=== PATIENT | male | born 1985 | race Caucasian/White ===

== ENCOUNTER 2017-03-15 16:51 | Emergency (ER) | payer OTHER ==
[~2017-03-15] VITALS: Ht 177.8 cm; Wt 93.5 kg
[2017-03-15 16:59] VITALS: Ht 177.8 cm; Wt 93.5 kg
[2017-03-15] MEDS ORDERED: HYDROCODONE/APAP (5/325) TAB PO ONE (18:30)
[2017-03-15] MEDS ORDERED: HYDR-906 PO (20:01)
[2017-03-15] MEDS ORDERED: IBUP-1542 PO (20:01)
[2017-03-15] MEDS ORDERED: ORPH100T PO (20:01)
--- NOTE | 2017-03-15 20:22 | RADRPT ---
PROCEDURE: XR Lumbar Spine. CLINICAL INDICATION: Lumbar spine pain. TECHNIQUE: AP, lateral, and cone-down lateral view of the lumbar spine were obtained. COMPARISON: No prior studies are available for comparison. FINDINGS: The alignment of the lumbar spine is within normal limits. The vertebral body heights and marrow de nsity are normal in appearance. There is preservation of the intervertebral disc spaces. There is no significant facet spondylosis. The neural foramina appear patent. The paraspinal soft tissues u nremarkable. The posterior elements are unremarkable. IMPRESSION: 1. Normal radiographs of the lumbar spine. 2. No evidence of fracture or significant degenerative disc disease. RPTAT: HGAS .Manny Thapa MD, MD Date Time Electronically viewed and signed by .Manny Thapa MD, on 03/15/2017 20:22 .S/
--- NOTE | 2017-03-15 20:23 | RADRPT ---
PROCEDURE: XR Knee. CLINICAL INDICATION: Bilateral knee pain status post fall. TECHNIQUE: AP, lateral and tunnel views of the bilateral knees were obtained. The images reviewed on a PACS workstation. COMPARISON: None available FINDINGS: Right knee: The distal femur and proximal tibia/fibula are normal in appearance. There is no fractu re. The medial and lateral compartment joint spaces are preserved. There is no abnormal calcificat ion. There is no joint effusion. Hoffa's fat pad is normal in appearance. There is normal appeara nce of the patellofemoral joint. The soft tissues are unremarkable. Left knee: The distal femur and proximal tibia/fibula are normal in appearance. There is no fractur e. The medial and lateral compartment joint spaces are preserved. There is no abnormal calcificati on. There is no joint effusion. Hoffa's fat pad is normal in appearance. There is normal appearan ce of the patellofemoral joint. The soft tissues are unremarkable. IMPRESSION: 1. Normal radiographs of the bilateral knees. No evidence of fracture. RPTAT: HGAS .Manny Thapa MD, MD Date Time Electronically viewed and signed by .Manny Thapa MD, on 03/15/2017 20:23 .S/
--- NOTE | 2017-03-15 20:25 | RADRPT ---
PROCEDURE: XR Tibia and Fibula. CLINICAL INDICATION: Left leg pain. TECHNIQUE: AP, lateral and oblique views of the left tibia and fibula were obtained. COMPARISON: No prior studies are available for comparison. FINDINGS: There is normal mineralization and alignment. No fracture or osseous lesion is identified. The joint s are unremarkable. There are normal soft tissues without evidence of soft tissue swelling. IMPRESSION: 1. Normal radiographs of the left tibia and fibula. No evidence of fracture. RPTAT: HGAS .Manny Thapa MD, MD Date Time Electronically viewed and signed by .Manny Thapa MD, MD on 03/15/2017 20:25 .S/
--- NOTE | 2017-03-15 20:26 | RADRPT ---
PROCEDURE: XR Tibia and Fibula. CLINICAL INDICATION: Right leg pain. TECHNIQUE: AP, lateral and oblique views of the right tibia and fibula were obtained. COMPARISON: No prior studies are available for comparison. FINDINGS: There is normal mineralization and alignment. No fracture or osseous lesion is identified. The joint s are unremarkable. There are normal soft tissues without evidence of soft tissue swelling. IMPRESSION: 1. Normal radiographs of the right tibia and fibula. No evidence of fracture. RPTAT: HGAS .Manny Thapa MD, MD Date Time Electronically viewed and signed by .Manny Thapa MD, MD on 03/15/2017 20:25 .S/
--- NOTE | 2017-03-15 20:26 | RADRPT ---
PROCEDURE: XR shoulder. CLINICAL INDICATION: Right shoulder pain. TECHNIQUE: AP internal and external rotation views of the right shoulder were performed. COMPARISON: None available FINDINGS: The clavicle, scapula and proximal humerus are normal in appearance. The acromioclavicular joint is normal in appearance. There is no significant lateral downsloping of the acromion. The glenohumer al joint space is maintained. There is no evidence of fracture or dislocation. The right hemithora x is normal in appearance. The soft tissues are unremarkable. IMPRESSION: 1. Normal radiographs of the right shoulder. No evidence of fracture or dislocation. RPTAT: HGAS .Manny Thapa MD, Date Time Electronically viewed and signed by .Manny Thapa MD, on 03/15/2017 20:26 .S/
[2017-03-15 20:45] VITALS: BP 112/68; PULSE 71; RESP 20
--- NOTE | 2017-03-16 10:58 | ERD ---
ER Documentation Chief Complaint Date/Time DATE: 03/16/17 TIME: 10:45 Chief Complaint GLF FROM LADDER YESTERDAY HPI This is a 31-year-old female that presents to the ER with his for pain after falling from a 6 foot ladder yesterday. Patient states that he is now experiencing lower back pain, bilateral knee pain, bilateral lower leg pain, right shoulder pain, right shoulder blade pain. Patient denies hitting his head he denies any loss of consciousness, nausea, vomiting. Patient denies any neck pain or neck stiffness.Patient denies any headache, vision loss, vision changes. He denies any weaknesses of his lower or upper extremities. Patient denies any numbness and tingling of his lower or upper extremities. Patient denies any urinary bowel incontinence. He denies any saddle like anesthesia. He denies any chest pain or shortness of breath. ROS 12 point review of systems was done all negative except per HPI. Medications Home Meds Active Scripts Orphenadrine Citrate (Norflex) 100 Mg Tablet.sa, 100 MG PO BID for 7 Days, TAB.SA Prov:DWIGHT ASHLEY C 03/15/17 Ibuprofen* (Motrin*) 600 Mg Tab, 600 MG PO Q6, #30 TAB Prov:GABI,DWIGHT C 03/15/17 Hydrocodone/Acetaminophen ([place]ia 5-325 Tablet) 1 Each Tablet, 1 TAB PO Q6H Y for PAIN, #20 TAB Prov:GABI,DWIGHT C 03/15/17 Allergies Allergies: Coded Allergies: No Known Allergy (Unverified , 03/15/17) PMhx/Soc Medical and Surgical Hx: pt denies Medical Hx, pt denies Surgical Hx Hx Alcohol Use: Yes Hx Substance Use: No Hx Tobacco Use: Yes Smoking Status: Light tobacco smoker Physical Exam Vitals Vital Signs Date Time Temp Pulse Resp B/P Pulse Ox O2 Delivery O2 Flow Rate FiO2 03/15/17 20:45 71 20 112/68 98 Room Air 03/15/17 16:59 98.4 104 18 130/75 97 Physical Exam GENERAL: The patient is well developed and appropriate for usual state of health , in no apparent distress. HEENT: Atraumatic. Conjunctivae are pink. Pupils equal, round, and reactive to light. Extraocular muscles are grossly intact. Bilateral tympanic membranes are clear with no evidence of erythema, effusion or dulling of the light reflex. The oropharynx is clear with no erythema or exudates. No raccoon eyes, no kahn sign. No CSF fluid from nasal nares are ears NECK: C-spine is soft and supple. There is no cervical lymphadenopathy. No surface trauma. Full range of motion without limitation or pain, flexion, extension, lateral bending, rotation and axial load. CHEST: Clear to auscultation bilaterally. There are no rales, wheezes or rhonchi. HEART: Regular rate and rhythm. No murmurs, clicks, rubs or gallops. ABDOMEN: Soft, nontender and nondistended, no areas of ecchymosis BACK: No midline or flank tenderness. no areas of ecchymosis LUMBAR SPINE: Patient is able to ambulate to treatment area without assistance. He is seated on the stretcher in no obvious distress. There is no surface trauma. No abrasions or scars. Patient is tender to palpation along L4 and L5. No SI notch tenderness no saddle anesthesia. Normal flexion, extension, lateral bending and rotation without limitation or complaint of pain. Heel and toe walk with good strength. Dorsi and plantar flexion with adequate strength. Negative straight leg test. Equal reflexes. +2 dorsalis pedal pulses and posterior tibial pulse. EXTREMITIES: The right shoulder is without obvious asymmetry or deformity when compared to the left shoulder. There is no surface trauma, ecchymosis, crepitus. No bony deformity or prominence of the humeral head. No erythema, warmth or swelling. Not tender to palpation over the clavicle, AC joint, acromion, humeral head. Patient is tender to palpation along the right scapula. There is no tenderness to palpation of the bicipital groove or soft tissues. Patient has painful extension of the right shoulder. However has normal range of motion with no pain or limitation with active or passive abduction, abduction, internal and external rotation, flexion. Negative drop arm test. Normal sensation over the deltoid. Distal motor neurovascular status is intact. Left shoulder is asymptomatic with normal range of motion and not tender to palpation. Normal range of motion of bilateral elbows and wrist with no pain and not tender to palpation. Left hip: Patient has normal range of motion of the left hip and is not tender to palpation. Areas of ecchymosis or deformities. Not tender to palpation over the femur Knees: Patient is tender to palpation to bilateral patellas, he however has normal and nonpainful range of motion to the knees. Negative anterior drawer negative posterior drawer negative Francisco Javier test bilaterally. Patient is tender to palpation to bilateral calves however denies any ankle pain. He is not tender to palpation to the lateral medial malleolus. Negative tarsal twist test. +2 pulses. Normal capillary refill. NEURO: Alert and oriented. Cranial nerves II through XII are intact. Motor strength in all 4 extremities with 5/5 strength. Sensation grossly intact. Normal speech and gait. SKIN: There is no apparent rash or petechia. The skin is warm and dry. Results 24 hrs Current Medications Medications (Trade) Dose Ordered Sig/Louis Route PRN Reason Start Time Stop Time Status Last Admin Dose Admin Acetaminophen/ Hydrocodone Bitart ([place]ia (5/325)) 2 tab ONCE ONCE PO 03/15/17 18:30 03/15/17 18:31 DC 03/15/17 18:[address] [place] [address] Radiology Main Line: [phone] DIAGNOSTIC IMAGING REPORT Patient: YAMINI MELGAR : 1985 Age: 31 Sex: M MR #: [id number] DOS: 03/15/17 0000 Ordering MD: DWIGHT ASHLEY PA-C Location: [facility] Room/Bed: PROCEDURE: XR Knee. CLINICAL INDICATION: Bilateral knee pain status post fall. TECHNIQUE: AP, lateral and tunnel views of the bilateral knees were obtained. The images reviewed on a PACS workstation. COMPARISON: None available FINDINGS: Right knee: The distal femur and proximal tibia/fibula are normal in appearance. There is no fracture. The medial and lateral compartment joint spaces are preserved. There is no abnormal calcification. There is no joint effusion. Hoffa's fat pad is normal in appearance. There is normal appearance of the patellofemoral joint. The soft tissues are unremarkable. Left knee: The distal femur and proximal tibia/fibula are normal in appearance. There is no fracture. The medial and lateral compartment joint spaces are preserved. There is no abnormal calcification. There is no joint effusion. Hoffa's fat pad is normal in appearance. There is normal appearance of the patellofemoral joint. The soft tissues are unremarkable. IMPRESSION: 1. Normal radiographs of the bilateral knees. No evidence of fracture. RPTAT: HGAS .Manny Thapa MD, MD Date Time Electronically viewed and signed by .Manny Thapa MD, MD on 03/15/2017 20: 23 .S/ CC: DWIGHT ASHLEY [place] [id number] Radiology Main Line: [phone] DIAGNOSTIC IMAGING REPORT Patient: YAMINI MELGAR : 1985 Age: 31 Sex: M MR #: [id number] DOS: 03/15/17 0000 Ordering MD: DWIGHT ASHLEY PA-C Location: [facility] Room/Bed: PROCEDURE: XR Lumbar Spine. CLINICAL INDICATION: Lumbar spine pain. TECHNIQUE: AP, lateral, and cone-down lateral view of the lumbar spine were obtained. COMPARISON: No prior studies are available for comparison. FINDINGS: The alignment of the lumbar spine is within normal limits. The vertebral body heights and marrow density are normal in appearance. There is preservation of the intervertebral disc spaces. There is no significant facet spondylosis. The neural foramina appear patent. The paraspinal soft tissues unremarkable. The posterior elements are unremarkable. IMPRESSION: 1. Normal radiographs of the lumbar spine. 2. No evidence of fracture or significant degenerative disc disease. RPTAT: HGAS .Manny Thapa MD, MD Date Time Electronically viewed and signed by .Manny Thapa MD, MD on 03/15/2017 20: 22 .S/ CC: GABIDWIGHT CURTIS [place] [address] Radiology Main Line: [phone] DIAGNOSTIC IMAGING REPORT Patient: YAMINI MELGAR : 1985 Age: 31 Sex: M MR #: [id number] DOS: 03/15/17 0000 Ordering MD: DWIGHT ASHLEY PA-C Location: [facility] Room/Bed: PROCEDURE: XR shoulder. CLINICAL INDICATION: Right shoulder pain. TECHNIQUE: AP internal and external rotation views of the right shoulder were performed. COMPARISON: None available FINDINGS: The clavicle, scapula and proximal humerus are normal in appearance. The acromioclavicular joint is normal in appearance. There is no significant lateral downsloping of the acromion. The glenohumeral joint space is maintained. There is no evidence of fracture or dislocation. The right hemithorax is normal in appearance. The soft tissues are unremarkable. IMPRESSION: 1. Normal radiographs of the right shoulder. No evidence of fracture or dislocation. RPTAT: HGAS .Manny Thapa MD, MD Date Time Electronically viewed and signed by .Manny Thapa MD, MD on 03/15/2017 20: 26 .S/ CC: DWIGHT ASHLEY [place] [address] Radiology Main Line: [phone] DIAGNOSTIC IMAGING REPORT Patient: YAMINI MLEGAR : 1985 Age: 31 Sex: M MR #: [id number] DOS: 03/15/17 0000 Ordering MD: DWIGHT ASHLEY PA-C Location: [facility] Room/Bed: PROCEDURE: XR Tibia and Fibula. CLINICAL INDICATION: Left leg pain. TECHNIQUE: AP, lateral and oblique views of the left tibia and fibula were obtained. COMPARISON: No prior studies are available for comparison. FINDINGS: There is normal mineralization and alignment. No fracture or osseous lesion is identified. The joints are unremarkable. There are normal soft tissues without evidence of soft tissue swelling. IMPRESSION: 1. Normal radiographs of the left tibia and fibula. No evidence of fracture. RPTAT: HGAS .Manny Thapa MD, MD Date Time Electronically viewed and signed by .Manny Thapa MD, MD on 03/15/2017 20: 25 .S/ CC: DWIGHT ASHLEY [place] [address] Radiology Main Line: [phone] DIAGNOSTIC IMAGING REPORT Patient: YAMINI MELGAR : 1985 Age: 31 Sex: M MR #: [id number] DOS: 03/15/17 0000 Ordering MD: DWIGHT ASHLEY. PA-C Location: [facility] Room/Bed: PROCEDURE: XR Tibia and Fibula. CLINICAL INDICATION: Right leg pain. TECHNIQUE: AP, lateral and oblique views of the right tibia and fibula were obtained. COMPARISON: No prior studies are available for comparison. FINDINGS: There is normal mineralization and alignment. No fracture or osseous lesion is identified. The joints are unremarkable. There are normal soft tissues without evidence of soft tissue swelling. IMPRESSION: 1. Normal radiographs of the right tibia and fibula. No evidence of fracture. RPTAT: HGAS .Manny Thapa MD, MD Date Time Electronically viewed and signed by .Manny Thapa MD, MD on 03/15/2017 20: 25 .S/ CC: DWIGHT ASHLEY Procedures/MDM Nexus criteria assessment: MLTTP: [None] Intoxication: [None] Distracting Injury: [None] Focal Neurodeficit: [None] AMS: [None] [Patient does not meet criteria for cervical imaging.] This is a 31-year-old male presents to the ER after falling from a ladder yesterday. Patient was neurologically intact with no focal neurological deficits and no history of head trauma. At this time do not believe that head CT is necessary. Patient also denied any neck pain and he does not have any excess criteria. Imaging was obtained of areas where patient was complaining of pain. His x-ray images were all normal. He is neurovascularly intact and he is able to ambulate in the ER without any pain. He is extremely well- appearing and is stable for outpatient follow-up. Patient will be sent home with Columbia, Norflex, ibuprofen. He needs to follow-up with his primary care doctor within 1-2 days or return to ER sooner if symptoms worsen. My medical decision making shared with the patient he understands and agrees with plan. Departure Diagnosis: Primary Impression: Fall Condition: Stable Patient Instructions: Fall, Mechanical Referrals: MIGUELINA PULIDO (PCP) Additional Instructions: Call your primary care doctor TOMORROW for an appointment during the next 1-2 days.See the doctor sooner or return here if your condition worsens before your appointment time. DWIGHT ASHLEY Mar 16, 2017 10:56
--- NOTE | 2017-03-17 12:49 | RADRPT ---
PROCEDURE: XR right scapula. CLINICAL INDICATION: Pain TECHNIQUE: 2 views of the right scapula were performed. COMPARISON: None. FINDINGS: There is normal osseous mineralization and alignment. No acute fracture or osseous lesion is identified. There are normal joints without evidence of arthritis or dislocation. The soft tissues are unremarkable. RPTAT: AA IMPRESSION: Unremarkable right scapula. .Cooper Dawkins MD, MD Date Time Electronically viewed and signed by .Cooper Dawkins MD, on 03/17/2017 12:48 .S/
== END 2017-03-15 20:47 | disposition home or self-care (01) ==
LOC: FTE 16:51
DX: S39.92XA Unspecified injury of lower back, initial encounter (principal); S89.91XA Unspecified injury of right lower leg, initial encounter; S89.92XA Unspecified injury of left lower leg, initial encounter; S49.91XA Unspecified injury of right shoulder and upper arm, initial encounter; F17.210 Nicotine dependence, cigarettes, uncomplicated; W11.XXXA Fall on and from ladder, initial encounter; Y92.9 Unspecified place or not applicable
CPT/HCPCS: 72100; 73010; 73030; 73562; 73590; Z7502; Z7610